=== PATIENT | female | born 1940 | race Caucasian/White ===

== ENCOUNTER → 2017-12-09 | Outpatient (CLI) | payer MEDICARE ==
[~2017-12-09] MED LIST: HYDR-3241 PO; LEVO750T26 PO; LISI40TA PO; MONT10TA6 PO; ZOLP-413 PO
== END | disposition home or self-care (01) ==
LOC: RAD 14:52
PROVIDERS: ATTEND Registered Nurse
DX: R07.81 Pleurodynia (principal); W07.XXXA Fall from chair, initial encounter; Y93.89 Activity, other specified; Y92.89 Other specified places as the place of occurrence of the external cause; Y99.8 Other external cause status

== ENCOUNTER 2019-02-10 14:59 | Emergency (ER) | payer MEDICARE, MEDICAID ==
[~2019-02-10] VITALS: Ht 157.5 cm; Wt 59.0 kg
[2019-02-10 15:07] VITALS: BP 147/68
--- NOTE | 2019-02-10 15:24 | NUR ---
PT WC'D TO ROOM 38 W/ C/O BILAT SHOULDER PAIN, BILAT HIP PAIN AND NOW HAS C/O BACK PAIN. STATES SHE HAS A PAIN DR AND WAS ON NORCO 10/325 5 TIMES A DAY FOR YEARS AND WENT TO HER NEW PCP [facility] AND WAS CHANGED TO MORPHINE 15 MG 5 TIMES A DAY. STATES PAIN HAS NOT BEEN CONTROLLED W/ MORPHINE. PT STATES SHE CAME TO ED TODAY "I'M TIRED OF BEING IN PAIN". DENIES GLF. PT RESTING ON GURNEY. NADN. MONITORS APPLIED. ERP DR. ENRIQUEZ AT BEDSIDE.
[2019-02-10] MEDS ORDERED: HYDROcodone/APAP 10/325 MG TABLET PO ONE (15:30)
[2019-02-10] MEDS ORDERED: HYDROcodone/APAP 10/325 MG TABLET ONE (15:34)
== END 2019-02-10 16:33 | disposition home or self-care (01) ==
LOC: ED 15:44
DX: G89.29 Other chronic pain (principal); M54.9 Dorsalgia, unspecified; I10 Essential (primary) hypertension; M19.90 Unspecified osteoarthritis, unspecified site
CPT/HCPCS: 99283

== ENCOUNTER 2020-07-06 11:56 | Emergency (ER) | payer MEDICARE, MEDICAID ==
[~2020-07-06] VITALS: Ht 157.5 cm; Wt 50.0 kg
[2020-07-06] MEDS ORDERED: HYDROmorphone 1 MG/ML, 1ML INJ ONE (12:21)
[2020-07-06] MEDS ORDERED: PLEASE ENTER HEIGHT AND WEIGHT MC SCH (12:30)
[2020-07-06] MEDS ORDERED: HYDROmorphone 1 MG/ML, 1ML INJ IM PRN (12:30)
--- NOTE | 2020-07-06 13:05 | NUR ---
RECEIVED REPORT FROM MINNIE. PT LAYING ON GURNEY WITH EYES CLOSED, RESPONDS APPROP TO STAFF, NAD, COMFORT MEASURES PROVIDED, FAMILY AT BS, CALL LIGHT WITHIN REACH.
--- NOTE | 2020-07-06 13:20 | NUR ---
CALLED DAISY BRIGHT) TO ASSIST IN RESUMING HOSPICE CARE WITH [facility].
--- NOTE | 2020-07-06 13:40 | NUR ---
SEEN BY DAISY, AWAITING RETURN CALL FROM HOSPICE FURNACE OPERATOR AND TENDER.
--- NOTE | 2020-07-06 14:07 | NUR ---
RECVD REPORT FROM AMADOR PEREZ, ASSUMED CARE OF PATIENT/ DISCUSSED PLAN OF CARE WITH PATIENT AND DAUGHTER. UPDATED VITALS, CLEANED PATIENT UP. CALL LIGHT WITHIN REACH, PATIENT RESTING COMFORTABLY WITH DAUGHTER AT BEDSIDE
--- NOTE | 2020-07-06 16:01 | NUR ---
[facility] TO TRANSPORT PT HOME @ [id number], PRIMARY RN UPDATED.
[2020-07-06 16:07] VITALS: BP 129/81
--- NOTE | 2020-07-06 16:30 | NUR ---
Patient and Caregiver given sling/discharge instructions and they have confirmed that they understand the instructions. Patient left facility via wheelchair and [facility].
== END 2020-07-06 16:36 | disposition home or self-care (01) ==
LOC: ED 12:23
DX: S40.012A Contusion of left shoulder, initial encounter (principal); M19.012 Primary osteoarthritis, left shoulder; I10 Essential (primary) hypertension; J44.9 Chronic obstructive pulmonary disease, unspecified; Z90.89 Acquired absence of other organs; W01.0XXA Fall on same level from slipping, tripping and stumbling without subsequent striking against object, initial encounter; Y93.89 Activity, other specified; Y92.009 Unspecified place in unspecified non-institutional (private) residence as the place of occurrence of the external cause; Y99.8 Other external cause status
CPT/HCPCS: 29105; 71045; 73030; 93005; 96372; 99284; J1170